=== PATIENT | female | born 1980 | race Caucasian/White ===

== ENCOUNTER 2019-09-13 11:21 | Outpatient (CLI) | payer OTHER, SELFPAY ==
[2019-09-13 11:53] LABS: Albumin Level 4.4 g/dL (3.5-5.1)
[2019-09-13 14:25] LABS: Iron 19 ug/dL (37-170)
[2019-09-13 20:17] LABS: Prealbumin 24.1 mg/dL (17.6-36.0)
[2019-09-18 11:16] LABS: Vitamin B1 15 nmol/L (8-30)
== END 2019-09-13 11:22 | disposition home or self-care (01) ==
PROVIDERS: Visit Provider Surgery Plastic and Reconstructive Surgery
DX: Z01.812 Encounter for preprocedural laboratory examination (principal)
CPT/HCPCS: 36415; 82040; 83540; 84134; 84425

== ENCOUNTER 2019-09-29 00:46 | Day surgery (SDC) | payer OTHER, SELFPAY ==
[2019-09-18 14:13] VITALS: BMI 21.6
--- NOTE | 2019-09-18 14:44 | PC.NURSE ---
PT STATES ON 09/15/19 HAD UTERINE ABLATION AND BILAT SALPINGECTOMY AT [facility] AND DR PANCHAL IS AWARE
[2019-09-29] VITALS (9 sets, daily range): BP systolic 107–124; BP diastolic 69–82; PULSE 62–81; RESP 9–20; TEMP 36.5–36.6; O2SAT 96–100
--- NOTE | 2019-09-29 08:44 | ECG_ITS ---
Measurements Intervals [place] Rate: 70 P: 42 HI: 151 QRS: 50 QRSD: 94 T: 14 QT: 401 QTc: 433 Interpretive Statements SINUS RHYTHM MINIMAL Q WAVES- LATERAL LEADS NONSPECIFIC T-WAVE ABNORMALITY- INFERIOR LEADS BORDERLINE ECG Electronically Signed On 09-29-2019 11:47:44 UNDERGROUND REPAIRER by Jeramie Alonso D.O.
[2019-09-29] MEDS: LACTATED RINGERS 1,000 ML 30 ML IV CONT ×2 (09:05→17:45)
[2019-09-29 09:41] LABS: Hematocrit 36.2 % (37.0-47.0)
[2019-09-29 10:21] LABS: Urine Cotinine NEGATIVE
[2019-09-29] MEDS: SCOPOLAMINE 1.5 MG PATCH TRANSDERM (11:30)
--- NOTE | 2019-09-29 11:43 | SUR.PREOP ---
1100 pt informed of delay w/surgeon/comfort measures provided/acknowledges understanding 1140 comfort measures provided/no distress noted/ toileting offered.
--- NOTE | 2019-09-29 11:53 | WPDANESEPPF ---
Anes - Initial Pre Proc Eval Procedure: Operation Date: 09/29/19 11:00 Proposed Procedures p Bilateral Breast Augmentation - Dewayne Garcia MD s Bilateral Mastopexy - Dewayne Garcia MD s Bilateral Lower Eyelid Blepharoplasty - Dewayne Garcia MD Date/Time: 09/29/19 11:53 Surgeon: Dewayne Garcia MD Pre Op Diagnosis: Micromastia, Skin Laxity Patient Data Age: 38 Gender: F Height: 5 ft 8 in Weight: 61.4 kg Last Vital Signs Temp 36.5 C 09/29/19 08:46 Pulse 63 09/29/19 08:46 Resp 20 09/29/19 08:46 BP 123/78 09/29/19 08:46 Pulse Ox 100 09/29/19 08:46 Allergies Allergy/AdvReac Type Severity Reaction Status Date / Time No Known Allergies Allergy Verified 09/29/19 09:18 Home Medications Medication Instructions Recorded Confirmed Type cholecalciferol (vitamin D3) 3,000 3,000 unit PO DAILY 08/01/19 09/29/19 History unit tablet multivitamin 1 cap PO DAILY 08/01/19 09/29/19 History calcium carbonate-vitamin D3 1 cap PO DAILY 09/18/19 09/29/19 History [Calcium 600 with Vitamin D3] cyanocobalamin (vitamin B-12) 3,000 mcg PO DAILY 09/18/19 09/29/19 History ferrous sulfate [Iron (ferrous 325 mg PO DAILY 09/18/19 09/29/19 History sulfate)] hydrocodone 5 mg-acetaminophen 325 1 tablet PO Q6H PRN #15 tablet 09/19/19 09/29/19 Rx mg tablet ondansetron HCl 4 mg tablet 4 mg PO Q8H #28 tablet 09/19/19 09/29/19 Rx Laboratory Tests 09/29/19 09/29/19 09:03 09:03 Hgb 11.0 g/dL L g/dL (12.0-15.0) Hct 36.2 % L % (37.0-47.0) Cotinine Negative Patient hx anesthesia problems: post op nausea/vomiting Family hx anesthesia problems: none PMFSH Surgical History Surgical History History of Social History Social History Smoking status: Never smoker Alcohol intake: current Anes - Eval Final PreProcedure Day of Procedure 09/29/19 11:53 Patient weight: normal Heart: regular rate and rhythm Lungs: clear to auscultation Airway: Mallampati scale class II Neurological: alert and oriented Last oral intake: >/= 8 hours ASA classification: II Emergent: no Anesthetic plan: proceed Anesthesia type and monitoring: general ETT and standard monitoring Informed Consent: The patient's anesthetic plan and its attendant risks and benefits were discussed with the patient/family/POA. Questions were solicited and answers provided to the satisfaction of the patient/family/POA.
--- NOTE | 2019-09-29 12:40 | SUR.PREOP ---
1230 ambulated to bathroom/comfort measures provided.
--- NOTE | 2019-09-29 12:56 | SUR.PREOP ---
update provided/acknowledges understanding
--- NOTE | 2019-09-29 13:40 | WPDHPUPDATE1 ---
History and Physical Update Update Date/Time: 09/29/19 13:40 History and Physical has been reviewed, including an updated exam of the patient. There are NO changes in the patient's condition. Risks, benefits, and alternatives have been discussed and questions answered. Patient agrees to proceed with procedure.
[2019-09-29] MEDS: ceFAZolin 2 GM/D5W 50 ML 2 GM/50 ML BAG IVPB (13:44)
--- NOTE | 2019-09-29 14:29 | SUR.OPER ---
1 AMP FENTANYL CHECKED OUT OF MAIN OR PYXSIS AND GIVEN TO RANDY GARRETT, HOOK AND EYE SEWING MACHINE OPERATOR
[2019-09-29] MEDS: LIDO 1%/EPINEPHRINE 1:100,000 20 ML VIAL 30 ML INFILTRATE (14:32)
--- NOTE | 2019-09-29 17:24 | SUR.OPER ---
EBL:20CC, NEOSPORIN OINTMENT APPLIED TO BOTH EYES
--- NOTE | 2019-09-29 17:34 | PM.PROC ---
Procedure Note - Detailed Date of procedure: 09/29/19 Pre-op diagnosis: Micromastia, Skin Laxity Breast ptosis Lower lid dermatochalasis Post-op diagnosis: same Procedure performed: 1. Bilateral breast augmentation mastopexy 2. Lower eyelid blepharoplasty Description of procedure: She is here today for bilateral breast augmentation /mastopexy. Previously and again today the risks, benefits, alternatives were discussed in extensive detail. I wanted her to be very realistic about the risks involved as well as expectations. We discussed aftercare and what to monitor for. Made sure answered all of her questions to her satisfaction today and consent was obtained. Marked in the preoperative holding area with their verification. The patient was taken to the operating room placed supine on the operating table. Anesthesia was provided by anesthesiology. A surgical time-out was taken. We cleansed the skin and 1% lidocaine and 0.25% Marcaine with epinephrine was used anesthetize as a field block. She was prepped and draped in a standard sterile fashion. Tegaderm nipple Reilly were placed. A 15 blade used to make an incision vertically down the breast. Dissection was continued until the chest wall as identified. I incised the pectoralis major along its inferior border and completely released the inferior border leaving the medial border intact. I created a subpectoral pocket in the appropriate dimensions based on our preoperative planning for the implant. I then copiously irrigated with saline solution and verified a strict hemostasis. Next the use a triple antibiotic and Betadine containing solution to irrigate the pocket. I washed my gloves with the triple antibiotic and Betadine solution. We washed the implant immediately upon opening it with this solution and only opened it when we needed it. I used implant funnel and no-touch technique. The implant was introduced into the pocket using the funnel. Having verified positioning of the implant this was closed using 2-0 Vicryl followed by 3-0 Monocryl. I then tailor tacked the breast into place. I verified in a sitting position the new nipple-areolar location. This was based on my preoperative markings and intraoperative measurements as well as observations which was in full agreement. There was an asymmetry preoperatively each we adjust for in the markings. I was very up front will never have perfect symmetry. She was placed supine. I de-epithelialized the superior pedicle. I then on the left removed just the central portion of the soft tissue that was the most dependent glandular ptosis as she had more glandular ptosis on the left than the right. I closed using 2-0 Vicryl followed by 3-0 Monocryl and running subcuticular 4-0 Monocryl and tissue glue. We then proceeded the eyes. 1% lidocaine and 0.25% Marcaine with epinephrine was used anesthetize locally. I used very minimal volume. A 15 blade used to make a lateral incision. Dissection was continued just below the orbicularis above the septum. I followed this to the rim and released the orbital rim. I then incised on the inferior aspect of the septum. Removed any adiposity that was clearly excess. I then did a septal reset using through and through sutures to the skin using 4-0 nylon. I verified smooth contour and good appearance prior to closure. I closed using a 5 0 nylon. She did not have any excess skin to removed. Bacitracin ophthalmic placed. Fluffs, Jayden wrap, and surgical bra were placed. Patient was awoke and taken to PACU without difficulty. All instrument sponge counts were correct at the end of the case. Implants: Allergan Natrelle Inspira Soft Touch Right REF# [id number] Left REF# [id number] Surgeon: Dewayne Garcia MD Drains: No Packing: No Pathology: none sent Complications: No immediate complications Condition: stable Disposition: PACU Findings: Mastopexy Bilateral Superior Pedicle Right - Ci
== END 2019-09-29 19:55 | disposition home or self-care (01) ==
PROVIDERS: Anesthesiology; Visit Provider Surgery Plastic and Reconstructive Surgery
PROC: (CPT 19325; principal; 2019-09-29 11:00)
PROC: (CPT 19316; 2019-09-29 11:00)
PROC: (CPT 19325; 2019-09-29 11:00)
DX: N64.82 Hypoplasia of breast (principal); N64.81 Ptosis of breast; H02.839 Dermatochalasis of unspecified eye, unspecified eyelid; L57.4 Cutis laxa senilis; Z41.1 Encounter for cosmetic surgery
CPT/HCPCS: 19325; 19316; 15820 ×2; 36415; 80307; 85014; 85018; 93005; A9270; J0131; J0330; J0690; J1100; J1170; J1200; J1580; J1741; J2250; J2405; J2704; J3010; J7120

== ENCOUNTER 2020-04-01 01:25 | Outpatient (CLI) | payer OTHER, SELFPAY ==
[2020-04-01 16:17] LABS: SARS-CoV-2 RNA PCR Negative
== END 2020-04-01 01:26 | disposition home or self-care (01) ==
LOC: ANHCOVIDDT 01:26
PROVIDERS: Visit Provider Surgery Plastic and Reconstructive Surgery
DX: Z01.812 Encounter for preprocedural laboratory examination (principal); Z20.828 Contact with and (suspected) exposure to other viral communicable diseases
CPT/HCPCS: 87635; C9803; U0003

== ENCOUNTER 2020-04-01 09:07 | Outpatient (CLI) | payer OTHER, SELFPAY ==
[2020-04-01 09:22] LABS: Hemoglobin 12.9 g/dL (12.0-15.0)
== END 2020-04-01 09:08 | disposition home or self-care (01) ==
PROVIDERS: Visit Provider Surgery Plastic and Reconstructive Surgery
DX: Z41.1 Encounter for cosmetic surgery (principal)
CPT/HCPCS: 36415; 85014; 85018

== ENCOUNTER 2020-04-04 06:01 | Day surgery (SDC) | payer OTHER, SELFPAY ==
[2020-03-25 11:57] VITALS: BMI 20.7
[2020-04-04] VITALS (7 sets, daily range): BP systolic 112–135; BP diastolic 84–102; PULSE 54–66; RESP 12–16; TEMP 36.3–37.2; O2SAT 96–100; BMI 20.5
--- NOTE | 2020-04-04 07:04 | P.PNAN_ITS ---
Anes - Initial Pre Proc Eval Procedure: Operation Date: 04/04/20 07:30 Proposed Procedures p Bilateral Breast Implant Exchange With Galaflex Placement - Dewayne Garcia MD Date/Time: 04/04/20 07:04 Surgeon: Dewayne Garcia MD Pre Op Diagnosis: Hx Breast Augmentation Patient Data Age: 39 Gender: F Height: 5 ft 8 in Weight: 61.45 kg Last Vital Signs Temp 37.2 C 04/04/20 06:35 Pulse 66 04/04/20 06:35 Resp 16 04/04/20 06:35 BP 112/84 04/04/20 06:35 Pulse Ox 100 04/04/20 06:35 Allergies Allergy/AdvReac Type Severity Reaction Status Date / Time No Known Allergies Allergy Verified 04/04/20 06:10 Home Medications Medication Instructions Recorded Confirmed Type cholecalciferol (vitamin D3) 75 3,000 unit PO DAILY 08/01/19 03/25/20 History mcg (3,000 unit) tablet multivitamin 1 cap PO DAILY 08/01/19 03/25/20 History calcium carbonate-vitamin D3 1 cap PO DAILY 09/18/19 03/25/20 History [Calcium 600 with Vitamin D3] cyanocobalamin (vitamin B-12) 3,000 mcg PO DAILY 09/18/19 03/25/20 History ferrous sulfate [Iron (ferrous 325 mg PO DAILY 09/18/19 03/25/20 History sulfate)] carisoprodol 350 mg tablet 350 mg PO TID PRN #21 tablet 04/03/20 Rx Patient hx anesthesia problems: post op nausea/vomiting Family hx anesthesia problems: none PMFSH Past Medical History Medical History Anemia Surgical History Surgical History History of Social History Social History Smoking status: Never smoker Alcohol intake: current Substance use type: does not use Living arrangements: with family Gender identity (if verbalized by the patient): Female Anes - Eval Final PreProcedure Day of Procedure 04/04/20 07:04 Patient weight: normal Heart: regular rate and rhythm Lungs: clear to auscultation Airway: Mallampati scale class II Neurological: alert and oriented Last oral intake: >/= 8 hours ASA classification: II Emergent: no Anesthetic plan: proceed Anesthesia type and monitoring: general LMA and standard monitoring Informed Consent: The patient's anesthetic plan and its attendant risks and rboert efits were discussed with the patient/family/POA. Questions were solicited and answers provided to the satisfaction of the patient/family/POA.
--- NOTE | 2020-04-04 07:11 | WPDHPUPDATE1 ---
History and Physical Update Update Date/Time: 04/04/20 07:11 History and Physical has been reviewed, including an updated exam of the patient. There are NO changes in the patient's condition. Risks, benefits, and alternatives have been discussed and questions answered. Patient agrees to proceed with procedure.
[2020-04-04] MEDS: LACTATED RINGERS 1,000 ML 30 ML IV CONT (07:19)
[2020-04-04] MEDS: SCOPOLAMINE 1.5 MG PATCH TRANSDERM (07:20)
[2020-04-04] MEDS: ceFAZolin SODIUM 2 GM/20 ML SW SYRINGE IV PUSH (07:24)
[2020-04-04] MEDS: LIDO 1%/EPINEPHRINE 1:100,000 20 ML VIAL 40 ML INFILTRATE (07:24)
--- NOTE | 2020-04-04 09:54 | P.OP_ITS ---
Procedure Note - Detailed Date of procedure: 04/04/20 Pre-op diagnosis: Hx Breast Augmentation Implant lateral migration Post-op diagnosis: same Procedure performed: Bilateral implant exchange with Galaflex. Description of procedure: Patient has concerns with supine that she has lateral migration of the implants. She would like proceed with revision with galaflex. Risks, benefits, alternatives were discussed in extensive detail. Want her to be very realistic about the risks involved as well as expectations. I explained to her if she continues to have lateral migration I do not have a good solution for her. There is the risk in fact she will always have some degree of lateral migration. She must be willing to accept this to proceed. She understands how we can make her results even worse. All questions answered to her satisfaction a lengthy open-ended conversation making sure we are in full understanding, full agreement and she was fully informed. Consent obtained. She was marked in the preoperative holding area both supine as well as standing. She was taken to the operating room supine table. Anesthesia provided anesthesiology and prepped and draped in a standard sterile fashion. 1% lidocaine and 0.25% Marcaine with epinephrine was used to provide a field block. Tegaderm nipple Reilly were used. I incised along the vertical incision. Continued down until the implant was identified and these were removed I verified the sizing. I irrigated with saline solution bilateral. I then proceeded with popcorn capsulorrhaphy laterally. This was completed on both breast. I then used a 2-0 PDS to reinforce the capsulorrhaphy laterally. This was 2 separate passes bilaterally to make sure this was fully reinforced. Medially I did a capsulotomy help relieve some of the pressure laterally. I made sure there was no injury to the medial insertion of muscle. I used the previous implants as sizers to place in the pocket in verify the repair and the position. We now copiously irrigated with 3 L total of saline solution on TUR tubing. I verified strict hemostasis. Galaflex was placed into the pocket which had been soaking on the back table. Trimmed as necessary and tacked into place with 2-0 Vicryl. Using a Marquez funnel and a no-touch technique the implant was introduced into the pocket. I closed with 2-0 Vicryl. I then excised the previous scar and c losed using 2-0 Vicryl followed by a 3-0 Monocryl in a running subcuticular 4-0 Monocryl and tissue glue. Fluffs and a surgical bra were placed. Patient was woken taken the PACU without difficulty. All instrument sponge counts were correct at the end of the case. I verified implant position repeatedly in the procedure. Implants: Galaflex [id number]. REF [id number] Bilateral Natrelle Inspira SoftTouch 485cc Implants Right: REF [id number] SN [id number] Left: REF [id number] SN [id number] Surgeon: Dewayne Garcia MD Estimated blood loss (mL): 20 Drains: No Packing: No Pathology: none sent Complications: No immediate complications Condition: stable Disposition: PACU
--- NOTE | 2020-04-04 10:38 | WPDANESPN ---
Anes - Prog Note Post-Op Date/Time: 04/04/20 10:38 Cardiovascular status: normal Respiratory status: normal Airway patency: baseline Mental status: baseline Post-Op hydration status: normal Vital Signs: Last Vital Signs Temp 36.3 C L 04/04/20 09:56 Pulse 54 L 04/04/20 10:20 Resp 16 04/04/20 10:20 BP 134/91 H 04/04/20 10:20 Pulse Ox 96 04/04/20 10:20 Pain Score (VAS): 3 Post-procedural complaints: none Patient Feedback: Patient satisfied with anesthetic care.
[2020-04-04] MEDS: ONDANSETRON INJ 4 MG/2 ML VIAL IV PUSH (10:56)
--- NOTE | 2020-04-04 11:09 | SUR.PHASEII ---
1055 pt assisted to the bathroom with assist of 1 once getting back to strecther pt c/o nausea. Pt brought back to room and given Zofran
[2020-04-04] MEDS: ACETAMINOPHEN 500 MG TABLET 1000 MG PO (11:16)
== END 2020-04-04 11:45 | disposition home or self-care (01) ==
PROVIDERS: Visit Provider Surgery Plastic and Reconstructive Surgery
PROC: (CPT 19342; principal; 2020-04-04 07:30)
DX: T85.49XA Other mechanical complication of breast prosthesis and implant, initial encounter (principal)
CPT/HCPCS: 19325